=== PATIENT | female | born 1960 | race American Indian/Alaskan Native ===

== ENCOUNTER 2017-01-24 12:06 | Emergency (ER) | payer MEDICAID ==
[2017-01-24 12:29] VITALS: BP 105/69
[2017-01-24] MEDS ORDERED: NORCO 5/325 PO ONE (15:16)
--- NOTE | 2017-01-24 15:33 | Emergency Department Report ---
ED General Adult HPI - General Chief complaint: Skin Rash Stated complaint: OPEN SORES ON HEAD/BACK/UNABLE TO HEAL Time Seen by Provider: 01/24/17 15:05 Source: patient Mode of arrival: Ambulatory Limitations: No Limitations - History of Present Illness Initial comments: PT c/o skin rash x 3-4 weeks. PT states the rash started on her scalp after she used a perm. PT states she thought she was allergic to the perm. PT states the first spot has healed but now she feels a bump coming back. PT states that she now has a rash on the back of her head that is tender, throbs and has foul smelling drainage. PT staets that yesterday she noticed bumps to her back. PT states she has had rash under L breast x 1-2 weeks. PT states she has tried topical antibiotic ointment and hydrogen peroxide but no improvement. PT also states she has painful bumps in her nose. MD Complaint: rash Onset/Timin -: Gradual, week(s) Location: head, face, chest, back, right, lower extremity Quality: other (throbbing headache with post scalp touched ) Consistency: intermittent Worsens with: other (palpation of scalp. laying down) Associated Symptoms: headaches (if scalp touched ). denies: chest pain, fever/ chills, loss of appetite, nausea/vomiting, shortness of breath Treatments Prior to Arrival: none - Related Data Previous Rx's Medication Instructions Recorded Last Taken Type ALPRAZolam [Xanax] 0.25 mg PO BID PRN #14 tab 06/11/13 Unknown Rx Azithromycin [Zithromax Z-TRAY] 250 mg PO DAILY #6 tab 06/11/13 Unknown Rx Dextromethorphan Polistirex 30 mg PO BID PRN #70 ml 06/11/13 Unknown Rx [Delsym] Acetaminophen/Codeine [Tylenol #3] 1 tab PO Q6H PRN #12 tab 01/24/17 Unknown Rx Cephalexin [Keflex] 500 mg PO Q6HR #40 capsule 01/24/17 Unknown Rx Mupirocin [Bactroban 2%] 1 applic TP TID 5 Days 01/24/17 Unknown Rx Nystatin [Nystop Powder] 1 applicatio TP TID 7 Days 01/24/17 Unknown Rx Sulfamethoxazole/Trimethoprim 1 each PO BID #20 tablet 01/24/17 Unknown Rx [Bactrim DS TAB] hydrOXYzine PAMOATE [Vistaril] 25 mg PO Q6HR PRN #12 capsule 01/24/17 Unknown Rx Allergies Allergy/AdvReac Type Severity Reaction Status Date / Time No Known Allergies Allergy Unverified 06/11/13 15:20 ED Review of Systems ROS: Stated complaint: OPEN SORES ON HEAD/BACK/UNABLE TO HEAL Other details as noted in HPI Comment: All other systems reviewed and negative Constitutional: denies: chills, fever ENT: epistaxis (if she rubs nose or blows hard, bumps in nose will bleed ) Respiratory: denies: shortness of breath Gastrointestinal: denies: nausea, vomiting Musculoskeletal: back pain (rash is painful ) Skin: rash ED Past Medical Hx - Past Medical History Previous Medical History?: No Additional medical history: Hepatitis C - Surgical History Past Surgical History?: Yes Hx Coronary Stent: No Additional Surgical History: Oral surgery - Social History Smoking Status: Former Smoker Substance Use Type: Prescribed - Medications Home Medications: Home Medications Medication Instructions Recorded Confirmed Last Taken Type ALPRAZolam [Xanax] 0.25 mg PO BID PRN #14 tab 06/11/13 Unknown Rx Azithromycin [Zithromax Z-TRAY] 250 mg PO DAILY #6 tab 06/11/13 Unknown Rx Dextromethorphan Polistirex 30 mg PO BID PRN #70 ml 06/11/13 Unknown Rx [Delsym] Acetaminophen/Codeine [Tylenol #3] 1 tab PO Q6H PRN #12 tab 01/24/17 Unknown Rx Cephalexin [Keflex] 500 mg PO Q6HR #40 capsule 01/24/17 Unknown Rx Mupirocin [Bactroban 2%] 1 applic TP TID 5 Days 01/24/17 Unknown Rx Nystatin [Nystop Powder] 1 applicatio TP TID 7 Days 01/24/17 Unknown Rx Sulfamethoxazole/Trimethoprim 1 each PO BID #20 tablet 01/24/17 Unknown Rx [Bactrim DS TAB] hydrOXYzine PAMOATE [Vistaril] 25 mg PO Q6HR PRN #12 capsule 01/24/17 Unknown Rx ED Physical Exam - General Limitations: No Limitations General appearance: alert, in no apparent distress - Head Head exam: Present: atraumatic, normocephalic, normal inspection - Eye Eye exam: Present: normal appearance, PERRL, EOMI. Absent: conjunctival injection - ENT ENT exam: Present: mucous membranes moist, normal external ear exam, other ( pustule to R nare, dried blood to L nare ) - Neck Neck exam: Present: normal inspection, full ROM. Absent: tenderness, lymphadenopathy - Respiratory Respiratory exam: Present: normal lung sounds bilaterally. Absent: respiratory distress, chest wall tenderness - Cardiovascular Cardiovascular Exam: Present: regular rate, normal rhythm - GI/Abdominal GI/Abdominal exam: Present: soft. Absent: tenderness - Extremities Exam Extremities exam: Present: normal inspection, full ROM. Absent: tenderness, pedal edema - Back Exam Back exam: Present: full ROM, tenderness (pustules on back ttp ), rash noted. Absent: CVA tenderness (R), CVA tenderness (L), muscle spasm, paraspinal tenderness, vertebral tenderness - Neurological Exam Neurological exam: Present: alert, oriented X3, normal gait - Psychiatric Psychiatric exam: Present: normal affect, normal mood - Skin Skin exam: Present: warm, dry, rash - Expanded Skin Exam Expanded Type of lesion: Present: rash. Absent: abscess Distribution of rash: head (scalp), chest, back Description of rash: Present: tenderness, erythematous, crusting, discharge 1 - post scalp with 3cm area of erythema, edema, and foul smelling drainage. 2 - scattered pustules 3 - scar 4 - erythematous wet rash under L breast 5 - skin is dry and scaly ED Course Vital Signs 01/24/17 12:25 Temperature 98 F Pulse Rate 65 Respiratory 18 Rate Blood Pressure 105/69 O2 Sat by Pulse 100 Oximetry - Reevaluation(s) Reevaluation #1: 01/24/17 15:43 PT aware of dx and plan of care - Pulse Oximetry Interpretation Digit-Finger Initial Pulse Oximetry Readin Actions Taken: none ED Medical Decision Making - Differential Diagnosis allergic reaction, tinea, cellulitis, abscess Critical Care Time: No Critical care attestation.: If time is entered above; I have spent that time in minutes in the direct care of this critically ill patient, excluding procedure time. ED Disposition Clinical Impression: Infection of scalp, Pustule of nostril, Skin pustule, Adriana infection Disposition: TO HOME OR SELFCARE Is pt being admited?: No Does the pt Need Aspirin: No Condition: Stable Instructions: Diaper Rash (ED), Cellulitis (ED), Acute Rash (ED), Folliculitis (ED) Additional Instructions: No driving or alcohol after taking Vistaril or Tylenol #3 Finish all antibiotics Apply the ointment to your nostrils use the powder under your left breast make sure your skin is completely dry after bathing good hand hygiene. Follow up with PCP / dermatology in the next 3-5 days The skin on your scalp appears infected today. You will need to be re- evaluated to ensure that there is not an underlying fungal infection If you have worsening or concerns, return to the ED Prescriptions: Acetaminophen/Codeine [Tylenol #3] 1 tab PO Q6H PRN #12 tab PRN Reason: Pain , Severe (7-10) Cephalexin [Keflex] 500 mg PO Q6HR #40 capsule hydrOXYzine PAMOATE [Vistaril] 25 mg PO Q6HR PRN #12 capsule PRN Reason: Itching Mupirocin [Bactroban 2%] 1 applic TP TID 5 Days Nystatin [Nystop Powder] 1 applicatio TP TID 7 Days Sulfamethoxazole/Trimethoprim [Bactrim DS TAB] 1 each PO BID #20 tablet Referrals: PRIMARY MD LEE [Primary Care Provider] - 3-5 Days TORI WHALEY MD [Staff Physician] - 3-5 Days [facility] [Outside] - 3-5 Days Forms: Work/School Release Form(ED) Time of Disposition: 15:48
== END 2017-01-24 16:09 | disposition home or self-care (01) ==
LOC: ED 12:06
DX: B37.2 Candidiasis of skin and nail (principal); Z87.891 Personal history of nicotine dependence
CPT/HCPCS: 99282

== ENCOUNTER 2020-08-27 10:24 | Outpatient (CLI) | payer BC ==
--- NOTE | 2020-08-27 11:37 | XRay Report ---
CHEST 2 VIEWS INDICATION: TOBACCO ABUSE. COMPARISON: None FINDINGS: Support devices: None. Heart: Within normal limits. Lungs/pleura: No acute air space or interstitial disease. No pneumothorax. Additional findings: Mild to moderate thoracolumbar scoliosis is noted. IMPRESSION: No acute findings. Unremarkable chest films. Signer Name: Ceasar Bradley Jr, MD Signed: 08/27/2020 11:32 AM Workstation Name: [id number]
--- NOTE | 2020-08-27 11:53 | Mammography Report ---
BILATERAL DIGITAL SCREENING MAMMOGRAM WITH CAD HISTORY: Screening mammogram. TECHNIQUE: Routine digital mammographic imaging performed. This examination was interpreted with damian giles benefit of Computer-aided Detection analysis. COMPARISON: None available, this is a baseline exam. FINDINGS: Breast Density: predominantly fatty breast parenchymal pattern. Digital CC and MLO views demonstrate no mammographic evidence of malignancy. IMPRESSION: No mammographic evidence of malignancy. If the clinical examination remains stable, recommend bilate ral mammogram in approximately one year. BIRADS 1: Negative. FURTHER INFORMATION: According to the [employer], yearly mammograms are recommend ed starting at age 40 and continuing as long as a woman is in good health. Clinical Breast Exams shou ld be part of a periodic health exam-about every 3 years for women in their 20s and 30s and every yea r for women 40 and over. Breast self exam is an option for women starting in their 20s. Any breast ch jacky noted on a breast self exam should be reported promptly to the patient's healthcare provider. Br east MRI is recommended for women with an approximately 20-25% or greater lifetime risk of breast can cer, including women with a strong family history of breast or ovarian cancer and women who have been treated for Hodgkin's disease. A negative Mammography report should not discourage follow up or biopsy of a clinically significant f inding and/or abnormality. Dense breast tissue may obscure small neoplasms. The patient will be entered into a reminder system with a target due date for the next screening mamm ogram. In Signer Name: Chinmay Childress MD Signed: 08/27/2020 11:49 AM Workstation Name: [id number]
== END 2020-08-27 10:25 | disposition home or self-care (01) ==
LOC: MAMMO 10:24
PROVIDERS: ATTEND Internal Medicine
DX: Z12.31 Encounter for screening mammogram for malignant neoplasm of breast (principal)
CPT/HCPCS: 71046; 77067

== ENCOUNTER 2020-12-10 16:45 | Inpatient (IN) | payer BC ==
--- NOTE | 2020-12-10 18:17 | XRay Report ---
CHEST 1 VIEW INDICATION / CLINICAL INFORMATION: sob. COMPARISON: 08/27/2020 FINDINGS: SUPPORT DEVICES: None. HEART / MEDIASTINUM: No significant abnormality. LUNGS / PLEURA: Mild interstitial prominence No pneumothorax. ADDITIONAL FINDINGS: No significant additional findings. IMPRESSION: Mild interstitial prominence is present compared to prior examination dated 08/27/2020 and this could r epresent mild pulmonary vascular congestion. Signer Name: Shawn Johnson MD FACR Signed: 12/10/2020 6:13 PM Workstation Name: [id number]
[2020-12-10 18:42] LABS: Basophils % (Auto) 0.8 % (0.0-1.8); Eosinophils # (Auto) 0.1 K/mm3 (0.0-0.4); Eosinophils % (Auto) 0.9 % (0.0-4.3); Hematocrit 38.9 % (30.3-42.9); Hemoglobin 13.4 gm/dl (10.1-14.3); Lymphocytes # (Auto) 1.6 K/mm3 (1.2-5.4); Lymphocytes % (Auto) 25.9 % (13.4-35.0); Mean Corpuscular HGB Conc 34 % (30-34); Mean Corpuscular Volume 85 fl (79-97); Monocytes # (Auto) 0.4 K/mm3 (0.0-0.8); Monocytes % (Auto) 5.8 % (0.0-7.3); Platelet Count 237 K/mm3 (140-440); Red Blood Count 4.57 M/mm3 (3.65-5.03); Red Cell Distribution Width 14.4 % (13.2-15.2)
[2020-12-10 18:52] LABS: INR 1.02 (0.87-1.13)
[2020-12-10 18:58] LABS: C-Reactive Protein 16.8 mg/dL (0.00-1.30)
[2020-12-10 21:49] LABS: Alanine Aminotransferase 19 units/L (7-56); Albumin 3.8 g/dL (3.9-5); Blood Urea Nitrogen 11 mg/dL (7-17); Calcium 9.3 mg/dL (8.4-10.2); Hemolysis Index 3
[2020-12-10 21:51] LABS: BUN/Creatinine Ratio 16
--- NOTE | 2020-12-10 22:44 | Cat Scan Report ---
CTA CHEST WITH IV CONTRAST INDICATION: Shortness of breath, hypoxia. TECHNIQUE: Axial CT images were obtained through the chest after injection of 100 cc Omnipaque 350 IV contrast. 3 plane MIP reconstructions were produced. All CT scans at this location are performed using CT dose reduction for ALARA by means of automated exposure control. COMPARISON: One view of the chest from earlier today. FINDINGS: PULMONARY ARTERIES: No pulmonary emboli. AORTA AND ARTERIES: There is mild aortic atherosclerosis without other significant abnormalities. HEART: No significant abnormality. MEDIASTINUM: Shotty mediastinal nodes are seen without a dominant mass. No significant abnormality of the airways. LUNGS: There are mostly peripheral generalized bilateral groundglass opacities with more dense airspa ce opacities noted along the lung bases. No suspicious nodule or mass. No pneumothorax or pleural eff usion. ADDITIONAL FINDINGS: None. UPPER ABDOMEN: No acute findings. BONES: No significant osseous abnormality. IMPRESSION: 1. No CT evidence for pulmonary embolism. 2. Suspected bilateral pneumonia. An atypical viral etiology is a consideration. Signer Name: Dinesh Gonsalez MD Signed: 12/10/2020 10:39 PM Workstation Name: [id number]
[2020-12-10] MEDS ORDERED: AZITHROMYCIN/NS 500 MG/250 ML 500 MG/250 ML BAG IV ONE (22:49)
[2020-12-10] MEDS ORDERED: cefTRIAXone/NS 1 GM/50 ML 1 GM/50 ML BAG IV ONE (22:50)
--- NOTE | 2020-12-10 22:57 | Emergency Department Report ---
ED General Adult HPI - General Chief complaint: Dyspnea/Respdistress Stated complaint: SOB Time Seen by Provider: 12/10/20 17:37 Source: patient, EMS Mode of arrival: Stretcher Limitations: No Limitations - History of Present Illness Initial comments: The patient presents to the emergency department via EMS from her doctor's office for shortness of breath. Patient states that she has had a dry cough and shortness of breath for the last couple of days and went to see her physician who is Dr. Manjit Quigley this afternoon. Upon arriving to his office and having vitals obtained it was noticed that her O2 sats were 87% on room air. Patient was sent to emergency department via EMS. Patient denies any uday chest pain but does endorse shortness of breath. -: Gradual Severity scale (0 -10): 0 Consistency: constant Improves with: none Worsens with: none Associated Symptoms: denies other symptoms Treatments Prior to Arrival: none - Related Data Previous Rx's Medication Instructions Recorded Last Taken Type ALPRAZolam [Xanax] 0.25 mg PO BID PRN #14 tab 06/11/13 Unknown Rx Azithromycin [Zithromax Z-TRAY] 250 mg PO DAILY #6 tab 06/11/13 Unknown Rx Dextromethorphan Polistirex 30 mg PO BID PRN #70 ml 06/11/13 Unknown Rx [Delsym] Acetaminophen/Codeine [Tylenol #3] 1 tab PO Q6H PRN #12 tab 01/24/17 Unknown Rx Mupirocin [Bactroban 2%] 1 applic TP TID 5 Days tube 01/24/17 Unknown Rx Nystatin [Nystop Powder] 1 applicatio TP TID 7 Days bottle 01/24/17 Unknown Rx Sulfamethoxazole/Trimethoprim 1 each PO BID #20 tablet 01/24/17 Unknown Rx [Bactrim DS TAB] cephALEXin [Keflex] 500 mg PO Q6HR #40 capsule 01/24/17 Unknown Rx hydrOXYzine PAMOATE [Vistaril] 25 mg PO Q6HR PRN #12 capsule 01/24/17 Unknown Rx Allergies Allergy/AdvReac Type Severity Reaction Status Date / Time No Known Allergies Allergy Unverified 06/11/13 15:20 ED Review of Systems ROS: Stated complaint: SOB Other details as noted in HPI Constitutional: denies: chills, fever Eyes: denies: eye pain, eye discharge, vision change ENT: denies: ear pain, throat pain Respiratory: shortness of breath. denies: cough, wheezing Cardiovascular: chest pain. denies: palpitations Endocrine: no symptoms reported Gastrointestinal: denies: abdominal pain, nausea, diarrhea Genitourinary: denies: urgency, dysuria, discharge Musculoskeletal: denies: back pain, joint swelling, arthralgia Skin: denies: rash, lesions Neurological: denies: headache, weakness, paresthesias Psychiatric: denies: anxiety, depression Hematological/Lymphatic: denies: easy bleeding, easy bruising ED Past Medical Hx - Past Medical History Previous Medical History?: Yes Hx Hypertension: Yes Hx Headaches / Migraines: Yes Hx COPD: Yes Additional medical history: Hepatitis C - Surgical History Hx Coronary Stent: No Additional Surgical History: Oral surgery, surgery for collapsed lung - Social History Smoking Status: Former Smoker Substance Use Type: None - Medications Home Medications: Home Medications Medication Instructions Recorded Confirmed Last Taken Type ALPRAZolam [Xanax] 0.25 mg PO BID PRN #14 tab 06/11/13 Unknown Rx Azithromycin [Zithromax Z-TRAY] 250 mg PO DAILY #6 tab 06/11/13 Unknown Rx Dextromethorphan Polistirex 30 mg PO BID PRN #70 ml 06/11/13 Unknown Rx [Delsym] Acetaminophen/Codeine [Tylenol #3] 1 tab PO Q6H PRN #12 tab 01/24/17 Unknown Rx Mupirocin [Bactroban 2%] 1 applic TP TID 5 Days tube 01/24/17 Unknown Rx Nystatin [Nystop Powder] 1 applicatio TP TID 7 Days bottle 01/24/17 Unknown Rx Sulfamethoxazole/Trimethoprim 1 each PO BID #20 tablet 01/24/17 Unknown Rx [Bactrim DS TAB] cephALEXin [Keflex] 500 mg PO Q6HR #40 capsule 01/24/17 Unknown Rx hydrOXYzine PAMOATE [Vistaril] 25 mg PO Q6HR PRN #12 capsule 01/24/17 Unknown Rx ED Physical Exam - General Limitations: No Limitations General appearance: alert, in no apparent distress - Head Head exam: Present: atraumatic, normocephalic - Eye Eye exam: Present: normal appearance - ENT ENT exam: Present: mucous membranes moist - Neck Neck exam: Present: normal inspection - Respiratory Respiratory exam: Present: normal lung sounds bilaterally, respiratory distress, decreased breath sounds - Cardiovascular Cardiovascular Exam: Present: regular rate, normal rhythm. Absent: systolic murmur, diastolic murmur, rubs, gallop - GI/Abdominal GI/Abdominal exam: Present: soft, normal bowel sounds. Absent: distended, tenderness - Extremities Exam Extremities exam: Present: normal inspection - Back Exam Back exam: Present: normal inspection - Neurological Exam Neurological exam: Present: alert, oriented X3, CN II-XII intact. Absent: motor sensory deficit - Psychiatric Psychiatric exam: Present: normal affect, normal mood - Skin Skin exam: Present: warm, dry, intact, normal color. Absent: rash ED Course Vital Signs 12/10/20 12/10/20 12/10/20 18:04 18:12 18:21 Temperature 98.6 F Pulse Rate 105 H Respiratory 25 H 25 H Rate Blood Pressure 113/77 Blood Pressure 113/77 [Left] O2 Sat by Pulse 96 95 95 Oximetry 12/10/20 12/10/20 12/10/20 18:31 19:01 19:31 Temperature Pulse Rate 105 H 107 H Respiratory 30 H 19 23 Rate Blood Pressure 118/85 118/85 118/85 Blood Pressure [Left] O2 Sat by Pulse 93 94 93 Oximetry 12/10/20 12/10/20 20:01 22:35 Temperature Pulse Rate Respiratory 19 20 Rate Blood Pressure Blood Pressure [Left] O2 Sat by Pulse 93 94 Oximetry ED Medical Decision Making - Lab Data Result diagrams: 12/10/20 18:21 12/10/20 18:31 Lab Results 12/10/20 12/10/20 12/10/20 Range/Units 18:21 18:21 18:21 WBC (4.5-11.0) K/mm3 RBC (3.65-5.03) M/mm3 Hgb (10.1-14.3) gm/dl Hct (30.3-42.9) % MCV (79-97) fl MCH (28-32) pg MCHC (30-34) % RDW (13.2-15.2) % Plt Count (140-440) K/mm3 Lymph % (Auto) (13.4-35.0) % [place] % (Auto) (0.0-7.3) % Eos % (Auto) (0.0-4.3) % Baso % (Auto) (0.0-1.8) % Lymph # (Auto) (1.2-5.4) K/mm3 [place] # (Auto) (0.0-0.8) K/mm3 Eos # (Auto) (0.0-0.4) K/mm3 Baso # (Auto) (0.0-0.1) K/mm3 Seg Neutrophils % (40.0-70.0) % Seg Neutrophils # (1.8-7.7) K/mm3 PT 13.3 (12.2-14.9) Sec. INR 1.02 (0.87-1.13) APTT 35.0 (24.2-36.6) Sec. D-Dimer 355.26 H (0-234) ng/mlDDU ABG pH (7.320-7.450) POC ABG pCO2 (32.0-48.0) mmHg POC ABG pO2 (83-108) mmHg POC ABG HCO3 ABG O2 Saturation (0-100) POC ABG Base Excess ABG Hemoglobin (12.0-17.5) ABG Oxyhemoglobin (94-98) ABG Methemoglobin (0.0-1.5) ABG Sodium (136.0-145.0) mmol/L ABG Potassium (3.40-4.50) mmol/L ABG Chloride (98-107) mmol/L ABG Glucose (65-95) mg/dL Carboxyhemoglobin (0.5-1.5) FiO2 % Sodium (137-145) mmol/L Potassium (3.6-5.0) mmol/L Chloride (98-107) mmol/L Carbon Dioxide (22-30) mmol/L Anion Gap mmol/L BUN (7-17) mg/dL Creatinine (0.6-1.2) mg/dL Estimated GFR ml/min BUN/Creatinine Ratio % Glucose 94 (65-100) mg/dL Lactic Acid (0.7-2.0) mmol/L Calcium (8.4-10.2) mg/dL Ferritin 594.5 H (10.0-200.0) ng/mL Total Bilirubin (0.1-1.2) mg/dL AST (5-40) units/L ALT (7-56) units/L Alkaline Phosphatase (35-129) units/L Lactate Dehydrogenase 345 H (91-180) units/L C-Reactive Protein 16.80 H (0.00-1.30) mg/dL Total Protein (6.3-8.2) g/dL Albumin (3.9-5) g/dL Albumin/Globulin Ratio % Arterial Blood Glucose (65-95) mg/dL Arterial Blood Ionized Calcium (4.6-5.3) mg/dL 12/10/20 12/10/20 12/10/20 Range/Units 18:21 18:21 18:31 WBC 6.3 (4.5-11.0) K/mm3 RBC 4.57 (3.65-5.03) M/mm3 Hgb 13.4 (10.1-14.3) gm/dl Hct 38.9 (30.3-42.9) % MCV 85 (79-97) fl MCH 29 (28-32) pg MCHC 34 (30-34) % RDW 14.4 (13.2-15.2) % Plt Count 237 (140-440) K/mm3 Lymph % (Auto) 25.9 (13.4-35.0) % [place] % (Auto) 5.8 (0.0-7.3) % Eos % (Auto) 0.9 (0.0-4.3) % Baso % (Auto) 0.8 (0.0-1.8) % Lymph # (Auto) 1.6 (1.2-5.4) K/mm3 [place] # (Auto) 0.4 (0.0-0.8) K/mm3 Eos # (Auto) 0.1 (0.0-0.4) K/mm3 Baso # (Auto) 0.0 (0.0-0.1) K/mm3 Seg Neutrophils % 66.6 (40.0-70.0) % Seg Neutrophils # 4.2 (1.8-7.7) K/mm3 PT (12.2-14.9) Sec. INR (0.87-1.13) APTT (24.2-36.6) Sec. D-Dimer (0-234) ng/mlDDU ABG pH (7.320-7.450) POC ABG pCO2 (32.0-48.0) mmHg POC ABG pO2 (83-108) mmHg POC ABG HCO3 ABG O2 Saturation (0-100) POC ABG Base Excess ABG Hemoglobin (12.0-17.5) ABG Oxyhemoglobin (94-98) ABG Methemoglobin (0.0-1.5) ABG Sodium (136.0-145.0) mmol/L ABG Potassium (3.40-4.50) mmol/L ABG Chloride (98-107) mmol/L ABG Glucose (65-95) mg/dL Carboxyhemoglobin (0.5-1.5) FiO2 % Sodium 134 L (137-145) mmol/L Potassium 3.0 L (3.6-5.0) mmol/L Chloride 91.6 L (98-107) mmol/L Carbon Dioxide 27 (22-30) mmol/L Anion Gap 18 mmol/L BUN 11 (7-17) mg/dL Creatinine 0.7 (0.6-1.2) mg/dL Estimated GFR > 60 ml/min BUN/Creatinine Ratio 16 % Glucose 91 (65-100) mg/dL Lactic Acid 1.40 (0.7-2.0) mmol/L Calcium 9.3 (8.4-10.2) mg/dL Ferritin (10.0-200.0) ng/mL Total Bilirubin 0.50 (0.1-1.2) mg/dL AST 39 (5-40) units/L ALT 19 (7-56) units/L Alkaline Phosphatase 93 (35-129) units/L Lactate Dehydrogenase (91-180) units/L C-Reactive Protein (0.00-1.30) mg/dL Total Protein 7.7 (6.3-8.2) g/dL Albumin 3.8 L (3.9-5) g/dL Albumin/Globulin Ratio 1.0 % Arterial Blood Glucose (65-95) mg/dL Arterial Blood Ionized Calcium (4.6-5.3) mg/dL 12/10/20 Range/Units 22:01 WBC (4.5-11.0) K/mm3 RBC (3.65-5.03) M/mm3 Hgb (10.1-14.3) gm/dl Hct (30.3-42.9) % MCV (79-97) fl MCH (28-32) pg MCHC (30-34) % RDW (13.2-15.2) % Plt Count (140-440) K/mm3 Lymph % (Auto) (13.4-35.0) % [place] % (Auto) (0.0-7.3) % Eos % (Auto) (0.0-4.3) % Baso % (Auto) (0.0-1.8) % Lymph # (Auto) (1.2-5.4) K/mm3 [place] # (Auto) (0.0-0.8) K/mm3 Eos # (Auto) (0.0-0.4) K/mm3 Baso # (Auto) (0.0-0.1) K/mm3 Seg Neutrophils % (40.0-70.0) % Seg Neutrophils # (1.8-7.7) K/mm3 PT (12.2-14.9) Sec. INR (0.87-1.13) APTT (24.2-36.6) Sec. D-Dimer (0-234) ng/mlDDU ABG pH 7.481 H (7.320-7.450) POC ABG pCO2 38.4 (32.0-48.0) mmHg POC ABG pO2 50.7 L (83-108) mmHg POC ABG HCO3 28.0 ABG O2 Saturation 86.3 (0-100) POC ABG Base Excess 4.4 ABG Hemoglobin 14.3 (12.0-17.5) ABG Oxyhemoglobin 85.3 L (94-98) ABG Methemoglobin 0.3 (0.0-1.5) ABG Sodium 137.3 (136.0-145.0) mmol/L ABG Potassium 2.9 L (3.40-4.50) mmol/L ABG Chloride 96.0 L (98-107) mmol/L ABG Glucose 84 (65-95) mg/dL Carboxyhemoglobin 0.9 (0.5-1.5) FiO2 % 21.0 Sodium (137-145) mmol/L Potassium (3.6-5.0) mmol/L Chloride (98-107) mmol/L Carbon Dioxide (22-30) mmol/L Anion Gap mmol/L BUN (7-17) mg/dL Creatinine (0.6-1.2) mg/dL Estimated GFR ml/min BUN/Creatinine Ratio % Glucose (65-100) mg/dL Lactic Acid (0.7-2.0) mmol/L Calcium (8.4-10.2) mg/dL Ferritin (10.0-200.0) ng/mL Total Bilirubin (0.1-1.2) mg/dL AST (5-40) units/L ALT (7-56) units/L Alkaline Phosphatase (35-129) units/L Lactate Dehydrogenase (91-180) units/L C-Reactive Protein (0.00-1.30) mg/dL Total Protein (6.3-8.2) g/dL Albumin (3.9-5) g/dL Albumin/Globulin Ratio % Arterial Blood Glucose 84 (65-95) mg/dL Arterial Blood Ionized Calcium 4.3 L (4.6-5.3) mg/dL - Radiology Data Radiology results: report reviewed - Medical Decision Making Patient's O2 sats are 95% on 2 L nasal cannula IV antibiotics initiated Results discussed with patient Critical Care Time: Yes Critical care time in (mins) excluding proc time.: 35 Critical care attestation.: If time is entered above; I have spent that time in minutes in the direct care of this critically ill patient, excluding procedure time. ED Disposition Clinical Impression: Bilateral pneumonia, Hypoxia Disposition: OP ADMIT IP TO THIS HOSP Is pt being admited?: Yes Does the pt Need Aspirin: No Condition: Fair Instructions: Bacterial Pneumonia (ED) Referrals: PRIMARY CARE, [Primary Care Provider] - 3-5 Days
[2020-12-10] MEDS ORDERED: dexAMETHasone 4 MG/ML VIAL IV ONE (23:22)
[2020-12-10] MEDS ORDERED: ALBUTEROL 2.5 MG/3 ML NEBU IH PRN (23:30)
[2020-12-10] MEDS ORDERED: hydrALAZINE 20 MG/1 ML INJ IV PRN (23:30)
[2020-12-10] MEDS ORDERED: ONDANSETRON 4 MG/2 ML INJ IV PRN (23:30)
[2020-12-10] MEDS ORDERED: DEXTROMETHORPHAN POLISTIREX 30 MG/5 ML PO PRN (23:31)
--- NOTE | 2020-12-10 23:39 | History and Physical Report ---
History of Present Illness Date of examination: 12/10/20 Date of admission: 12/10/20 Chief complaint: Shortness of breath History of present illness: 60 years old female with history of COPD former smoker hypertension was brought to the ER from her doctor's office for shortness of breath. Patient states that she has had a dry cough and shortness of breath for the last couple of days and went to see her physician who is Dr. Manjit Quigley this afternoon. Upon ar riving to his office and having vitals obtained it was noticed that her O2 sats were 87% on room air. Patient was sent to emergency department via EMS. Patient denies any uday chest pain but does endorse shortness of breath. In the emergency room patient O2 sat was 86.3. Patient CT scan of the chest showed groundglass opacity compatible with Covid pneumonia as per the ER physician Past History Past Medical History: COPD, hypertension, other (Former smoker migraine) Medications and Allergies Allergies Allergy/AdvReac Type Severity Reaction Status Date / Time No Known Allergies Allergy Unverified 06/11/13 15:20 Home Medications Medication Instructions Recorded Confirmed Last Taken Type ALPRAZolam [Xanax] 0.25 mg PO BID PRN #14 tab 06/11/13 Unknown Rx Azithromycin [Zithromax Z-TRAY] 250 mg PO DAILY #6 tab 06/11/13 Unknown Rx Dextromethorphan Polistirex 30 mg PO BID PRN #70 ml 06/11/13 Unknown Rx [Delsym] Acetaminophen/Codeine [Tylenol #3] 1 tab PO Q6H PRN #12 tab 01/24/17 Unknown Rx Mupirocin [Bactroban 2%] 1 applic TP TID 5 Days tube 01/24/17 Unknown Rx Nystatin [Nystop Powder] 1 applicatio TP TID 7 Days bottle 01/24/17 Unknown Rx Sulfamethoxazole/Trimethoprim 1 each PO BID #20 tablet 01/24/17 Unknown Rx [Bactrim DS TAB] cephALEXin [Keflex] 500 mg PO Q6HR #40 capsule 01/24/17 Unknown Rx hydrOXYzine PAMOATE [Vistaril] 25 mg PO Q6HR PRN #12 capsule 01/24/17 Unknown Rx Active Meds: Active Medications Azithromycin (Zithromax/Ns) 500 mg in 250 mls @ 250 mls/hr IV ONCE ONE; Protoco l Stop: 12/10/20 23:48 Ceftriaxone Sodium (Rocephin/Ns 2 Gm/100 Ml) 2 gm in 100 mls @ 200 mls/hr IV Q24H MARTHA; Protocol Azithromycin (Zithromax/Ns) 500 mg in 250 mls @ 250 mls/hr IV Q24H MARTHA; Protoc ol Review of Systems Cardiovascular: shortness of breath Respiratory: cough, cough with sputum, shortness of breath Exam - Constitutional Vitals: Temp Pulse Resp BP Pulse Ox 98.6 F 107 H 20 118/85 94 12/10/20 18:12 12/10/20 19:01 12/10/20 22:35 12/10/20 19:31 12/10/20 22:35 General appearance: Present: no acute distress, well-nourished - EENT Eyes: Present: PERRL ENT: hearing intact, clear oral mucosa - Neck Neck: Present: supple, normal ROM - Respiratory Respiratory effort: normal Respiratory: bilateral: diminished - Cardiovascular Heart Sounds: Present: S1 & S2. Absent: rub, click - Extremities Extremities: pulses symmetrical, No edema Peripheral Pulses: within normal limits - Abdominal General gastrointestinal: Present: soft, non-tender, non-distended, normal bowel sounds Female genitourinary: Present: normal - Integumentary Integumentary: Present: clear, warm, dry - Musculoskeletal Musculoskeletal: gait normal, strength equal bilaterally - Psychiatric Psychiatric: appropriate mood/affect, intact judgment & insight - Neurologic Neurologic: CNII-XII intact, moves all extremities Results - Labs CBC & Chem 7: 12/10/20 18:21 12/10/20 18:31 Labs: Laboratory Last Values WBC 6.3 K/mm3 (4.5-11.0) 12/10/20 18: RBC 4.57 M/mm3 (3.65-5.03) 12/10/20 18:21 Hgb 13.4 gm/dl (10.1-14.3) 12/10/20 18:21 Hct 38.9 % (30.3-42.9) 12/10/20 18:21 MCV 85 fl (79-97) 12/10/20 18:21 MCH 29 pg (28-32) 12/10/20 18:21 MCHC 34 % (30-34) 12/10/20 18:21 RDW 14.4 % (13.2-15.2) 12/10/20 18:21 Plt Count 237 K/mm3 (140-440) 12/10/20 18:21 Lymph % (Auto) 25.9 % (13.4-35.0) 12/10/20 18:21 [place] % (Auto) 5.8 % (0.0-7.3) 12/10/20 18:21 Eos % (Auto) 0.9 % (0.0-4.3) 12/10/20 18:21 Baso % (Auto) 0.8 % (0.0-1.8) 12/10/20 18:21 Lymph # (Auto) 1.6 K/mm3 (1.2-5.4) 12/10/20 18:21 [place] # (Auto) 0.4 K/mm3 (0.0-0.8) 12/10/20 18:21 Eos # (Auto) 0.1 K/mm3 (0.0-0.4) 12/10/20 18: Baso # (Auto) 0.0 K/mm3 (0.0-0.1) 12/10/20 18: Seg Neutrophils % 66.6 % (40.0-70.0) 12/10/20 18: Seg Neutrophils # 4.2 K/mm3 (1.8-7.7) 12/10/20 18:21 PT 13.3 Sec. (12.2-14.9) 12/10/20 18: INR 1.02 (0.87-1.13) 12/10/20 18: APTT 35.0 Sec. (24.2-36.6) 12/10/20 18:21 D-Dimer 355.26 ng/mlDDU (0-234) H 12/10/20 18:21 ABG pH 7.481 (7.320-7.450) H 12/10/20 22:01 POC ABG pCO2 38.4 mmHg (32.0-48.0) 12/10/20 22:01 POC ABG pO2 50.7 mmHg (83-108) L 12/10/20 22:01 POC ABG HCO3 28.0 12/10/20 22:01 ABG O2 Saturation 86.3 (0-100) 12/10/20 22:01 POC ABG Base Excess 4.4 12/10/20 22:01 ABG Hemoglobin 14.3 (12.0-17.5) 12/10/20 22:01 ABG Oxyhemoglobin 85.3 (94-98) L 12/10/20 22:01 ABG Methemoglobin 0.3 (0.0-1.5) 12/10/20 22:01 ABG Sodium 137.3 mmol/L (136.0-145.0) 12/10/20 22:01 ABG Potassium 2.9 mmol/L (3.40-4.50) L 12/10/20 22:01 ABG Chloride 96.0 mmol/L (98-107) L 12/10/20 22:01 ABG Glucose 84 mg/dL (65-95) 12/10/20 22:01 Carboxyhemoglobin 0.9 (0.5-1.5) 12/10/20 22:01 FiO2 % 21.0 12/10/20 22:01 Sodium 134 mmol/L (137-145) L 12/10/20 18:31 Potassium 3.0 mmol/L (3.6-5.0) L 12/10/20 18:31 Chloride 91.6 mmol/L (98-107) L 12/10/20 18:31 Carbon Dioxide 27 mmol/L (22-30) 12/10/20 18:31 Anion Gap 18 mmol/L 12/10/20 18:31 BUN 11 mg/dL (7-17) 12/10/20 18:31 Creatinine 0.7 mg/dL (0.6-1.2) 12/10/20 18:31 Estimated GFR > 60 ml/min 12/10/20 18:31 BUN/Creatinine Ratio 16 % 12/10/20 18:31 Glucose 91 mg/dL (65-100) 12/10/20 18:31 Lactic Acid 1.40 mmol/L (0.7-2.0) 12/10/20 18:21 Calcium 9.3 mg/dL (8.4-10.2) 12/10/20 18:31 Ferritin 594.5 ng/mL (10.0-200.0) H 12/10/20 18:21 Total Bilirubin 0.50 mg/dL (0.1-1.2) 12/10/20 18:31 AST 39 units/L (5-40) 12/10/20 18:31 ALT 19 units/L (7-56) 12/10/20 18:31 Alkaline Phosphatase 93 units/L (35-129) 12/10/20 18:31 Lactate Dehydrogenase 345 units/L (91-180) H 12/10/20 18:21 C-Reactive Protein 16.80 mg/dL (0.00-1.30) H 12/10/20 18:21 Total Protein 7.7 g/dL (6.3-8.2) 12/10/20 18:31 Albumin 3.8 g/dL (3.9-5) L 12/10/20 18:31 Albumin/Globulin Ratio 1.0 % 12/10/20 18:31 Arterial Blood Glucose 84 mg/dL (65-95) 12/10/20 22:01 Arterial Blood Ionized Calcium 4.3 mg/dL (4.6-5.3) L 12/10/20 22:01 Microbiology: Microbiology 12/10/20 18:21 Peripheral/Venous Blood Culture - Preliminary Culture in Progress 12/10/20 18:21 Peripheral/Venous Blood Culture - Preliminary Culture in Progress - Imaging and Cardiology CT scan - chest: report reviewed Assessment and Plan VTE prophylaxis?: Chemical Plan of care discussed with patient/family: Yes - Patient Problems (1) Pneumonia due to COVID-19 virus Current Visit: Yes Status: Acute Plan to address problem: Admit the patient to the medical floor. Put the patient on pneumonia pathway. Oxygen by nasal cannula 3 L/min. DuoNeb by nebulizer every 4 hours as needed. Rocephin 2 g IV daily and Zithromax 500 mg IV daily. Dexamethasone 6 mg IV daily. We do the blood cultures sputum culture. We will consult infectious disease for further evaluation. Follow the markers of COVID-19 (2) COPD (chronic obstructive pulmonary disease) Current Visit: Yes Status: Acute Plan to address problem: Oxygen per nasal cannula 3 L/min. DuoNeb by nebulizer every 4 hours as needed. Dexamethasone 6 mg IV daily (3) Hypoxia Current Visit: Yes Status: Acute Plan to address problem: Oxygen per nasal cannula 3 L/min. DuoNeb by nebulizer every 4 hours as needed. Dexamethasone 6 mg IV daily. If needed will consult pulmonary (4) Hypertension Current Visit: Yes Status: Acute Plan to address problem: Hydralazine 10 mg IV every 6 hours as needed. We monitor the blood pressure closely (5) Migraine Current Visit: Yes Status: Acute Plan to address problem: Stable we will continue the home medication (6) DVT prophylaxis Current Visit: Yes Status: Acute Plan to address problem: Heparin 5000 units subcu every 8 hours for DVT prophylaxis. Pepcid 20 mg p.o. twice daily for GI prophylaxis. Patient is a full code
[2020-12-11] MEDS: guaiFENesin 100 MG/5 ML ORAL LIQD PO PRN (01:01)
[2020-12-11] MEDS: IPRATROPIUM/ALBUTEROL SULFATE 3 ML AMPUL.NEB IH SCH ×4 (01:26→20:44)
[2020-12-11] MEDS: HEPARIN 5,000 UNIT/1 ML VIAL SUB-Q SCH ×3 (05:13→21:42)
[2020-12-11 07:37] LABS: Basophils % (Auto) 0.2 % (0.0-1.8); Eosinophils % (Auto) 0.1 % (0.0-4.3); Hematocrit 37.5 % (30.3-42.9); Hemoglobin 12.9 gm/dl (10.1-14.3); Lymphocytes # (Auto) 1.1 K/mm3 (1.2-5.4); Lymphocytes % (Auto) 22.8 % (13.4-35.0); Mean Corpuscular HGB Conc 34 % (30-34); Mean Corpuscular Volume 85 fl (79-97); Monocytes # (Auto) 0.3 K/mm3 (0.0-0.8); Monocytes % (Auto) 6.2 % (0.0-7.3); Red Blood Count 4.39 M/mm3 (3.65-5.03); Red Cell Distribution Width 14.1 % (13.2-15.2)
[2020-12-11 07:52] LABS: Blood Urea Nitrogen 14 mg/dL (7-17); Calcium 8.8 mg/dL (8.4-10.2); Hemolysis Index 0
[2020-12-11 07:56] LABS: Platelet Count 252 K/mm3 (140-440)
[2020-12-11 07:57] LABS: BUN/Creatinine Ratio 23
[2020-12-11] MEDS ORDERED: POTASSIUM CHLORIDE ER 20 MEQ TAB PO NR (09:07)
[2020-12-11] MEDS: dexAMETHasone 4 MG/ML VIAL IV SCH (09:30)
[2020-12-11] MEDS: FAMOTIDINE 20 MG TAB PO SCH ×2 (09:30→21:42)
[2020-12-11] MEDS: MUPIROCIN 2% OINT 22 GM TP SCH ×3 (09:32→21:44)
[2020-12-11] MEDS: NYSTATIN POWDER 15 GM TP SCH ×3 (09:44→21:44)
[2020-12-11] MEDS ORDERED: cefTRIAXone/NS 2 GM/100 ML 2 GM/100 ML BAG IV SCH (10:00)
[2020-12-11] MEDS ORDERED: AZITHROMYCIN/NS 500 MG/250 ML 500 MG/250 ML BAG IV SCH (10:00)
--- NOTE | 2020-12-11 11:36 | Progress Note ---
Assessment and Plan -- Pneumonia due to COVID-19 virus -Patient tested positive for COVID-19 virus -CXR/CTA shows patchy parenchymal disease with a groundglass opacity -S/p dexamethasone, azithromycin and ceftriaxone in the ED -Placed on dexamethasone for total 10 days and will start remdesivir total 5 days -No need for antibiotic as procalcitonin level is normal -Infectious disease consulted, appreciate recommendations -Droplet/contact isolation -Continue SPO2 monitoring -Supplemental oxygen as needed -Pulmonary hygiene -Prone to sleep -Vitamin C, vitamin D, zinc -Anticoagulation per protocol -Lasix IV as needed to prevent pulmonary edema -- COPD (chronic obstructive pulmonary disease) with exacerbation Oxygen per nasal cannula 3 L/min. DuoNeb by nebulizer every 4 hours as needed. Dexamethasone 6 mg IV daily --Acute hypoxic respiratory failure, POA Due to COVID-19 pneumonia Oxygen per nasal cannula 3 L/min. DuoNeb by nebulizer every 4 hours as needed. Dexamethasone 6 mg IV daily. If needed will consult pulmonary -- Hypertension Hydralazine 10 mg IV every 6 hours as needed. We monitor the blood pressure closely -- Migraine Stable we will continue the home medication --Obesity, diet and exercise recommendation when clinically more stable as outpatient -- DVT prophylaxis Heparin 5000 units subcu every 8 hours for DVT prophylaxis. Pepcid 20 mg p.o. twice daily for GI prophylaxis. --Patient is a full code Brief history: 60-year-old female past medical history COPD, hypertension, obesity who did not receive COVID-19 vaccine yet sent to the hospital from her PCP due to shortness of breath and found to be saturating 87% on room air. Chest CTA in the ER showed bilateral groundglass opacities. Admitted for possible COVID-19 pneumonia and acute respiratory failure. Daily clinical course: 12/10/20; Covid PCR positive. Normal procalcitonin. Normal renal function. Stop ceftriaxone and azithromycin as procalcitonin level is normal. ID consultED. Continue dexamethasone 6 mg daily for 10 days . Will start on remdesivir as patient is hypoxic and requiring 2-3 L nasal cannula O2. Blood cultures pending. Continue to follow COVID-19 protocol and monitor inflammatory markers. Subjective Date of service: 12/11/20 Interval history: Patient seen and examined. Medical records and medication list reviewed. No acute event overnight noted by the RN. Patient complains of difficulty breathing on minimal exertion and dry cough. Patient is tolerating diet. Positive for COVID-19 Discussed plan of care at bedside with patient. Objective - Exam Narrative Exam: Limited physical exam due to COVID-19 pandemic to minimize transmission of the disease and to preserve PPE. Vital reviewed and stable. GENERAL: well-developed obese elderly -[place] female lying on bed appeared to be in no discomfort. HEENT: Normocephalic. Atraumatic. NECK: Supple. CHEST/LUNGS: breathing nonlabored. HEART/CARDIOVASCULAR: Heart rate stable on telemetry ABDOMEN: Visibly not distended SKIN: There is no rash NEURO: No focal motor deficit. Follows command. MUSCULOSKELETAL: No joint effusion EXTRIMITY: No swelling, no cyanosis or clubbing. PSYCH: Cooperative. - Constitutional Vitals: Vital Signs - 12hr 12/10/20 12/10/20 12/11/20 23:41 23:51 00:01 Temperature Pulse Rate Pulse Rate [ Bilateral Throughout] Respiratory 27 H 24 32 H Rate Respiratory Rate [Bilateral Throughout] Blood Pressure 115/73 115/73 112/73 Blood Pressure [Left] O2 Sat by Pulse 95 96 95 Oximetry 12/11/20 12/11/20 12/11/20 00:26 00:30 02:30 Temperature 98.5 F 98.7 F Pulse Rate 105 H 110 H Pulse Rate [ Bilateral Throughout] Respiratory 18 16 Rate Respiratory Rate [Bilateral Throughout] Blood Pressure 108/78 Blood Pressure 97/64 [Left] O2 Sat by Pulse 90 94 95 Oximetry 12/11/20 12/11/20 12/11/20 05:02 05:45 05:51 Temperature 98.7 F Pulse Rate 88 Pulse Rate [ Bilateral Throughout] Respiratory 18 Rate Respiratory Rate [Bilateral Throughout] Blood Pressure 126/61 112/73 112/73 Blood Pressure [Left] O2 Sat by Pulse 91 94 100 Oximetry 12/11/20 12/11/20 07:31 08:59 Temperature Pulse Rate Pulse Rate [ 90 Bilateral Throughout] Respiratory Rate Respiratory 17 Rate [Bilateral Throughout] Blood Pressure Blood Pressure [Left] O2 Sat by Pulse 92 Oximetry - Labs CBC & Chem 7: 12/11/20 06:25 12/11/20 06:25 Labs: Abnormal lab results 12/10/20 12/10/20 12/10/20 Range/Units 18:21 18:21 18:21 Lymph # (Auto) (1.2-5.4) K/mm3 Seg Neutrophils % (40.0-70.0) % D-Dimer 355.26 H (0-234) ng/mlDDU ABG pH (7.320-7.450) POC ABG pO2 (83-108) mmHg ABG Oxyhemoglobin (94-98) ABG Potassium (3.40-4.50) mmol/L ABG Chloride (98-107) mmol/L Sodium (137-145) mmol/L Potassium (3.6-5.0) mmol/L Chloride (98-107) mmol/L Glucose (65-100) mg/dL Ferritin 594.5 H (10.0-200.0) ng/mL Lactate Dehydrogenase 345 H (91-180) units/L C-Reactive Protein 16.80 H (0.00-1.30) mg/dL Albumin (3.9-5) g/dL Arterial Blood Ionized Calcium (4.6-5.3) mg/dL 12/10/20 12/10/20 12/11/20 Range/Units 18:31 22:01 06:25 Lymph # (Auto) 1.1 L (1.2-5.4) K/mm3 Seg Neutrophils % 70.7 H (40.0-70.0) % D-Dimer (0-234) ng/mlDDU ABG pH 7.481 H (7.320-7.450) POC ABG pO2 50.7 L (83-108) mmHg ABG Oxyhemoglobin 85.3 L (94-98) ABG Potassium 2.9 L (3.40-4.50) mmol/L ABG Chloride 96.0 L (98-107) mmol/L Sodium 134 L (137-145) mmol/L Potassium 3.0 L (3.6-5.0) mmol/L Chloride 91.6 L (98-107) mmol/L Glucose (65-100) mg/dL Ferritin (10.0-200.0) ng/mL Lactate Dehydrogenase (91-180) units/L C-Reactive Protein (0.00-1.30) mg/dL Albumin 3.8 L (3.9-5) g/dL Arterial Blood Ionized Calcium 4.3 L (4.6-5.3) mg/dL 12/11/20 Range/Units 06:25 Lymph # (Auto) (1.2-5.4) K/mm3 Seg Neutrophils % (40.0-70.0) % D-Dimer (0-234) ng/mlDDU ABG pH (7.320-7.450) POC ABG pO2 (83-108) mmHg ABG Oxyhemoglobin (94-98) ABG Potassium (3.40-4.50) mmol/L ABG Chloride (98-107) mmol/L Sodium (137-145) mmol/L Potassium 3.1 L (3.6-5.0) mmol/L Chloride 93.4 L (98-107) mmol/L Glucose 104 H (65-100) mg/dL Ferritin (10.0-200.0) ng/mL Lactate Dehydrogenase (91-180) units/L C-Reactive Protein (0.00-1.30) mg/dL Albumin (3.9-5) g/dL Arterial Blood Ionized Calcium (4.6-5.3) mg/dL
--- NOTE | 2020-12-11 14:32 | Consultation ---
History of Present Illness - Reason for Consult Consult date: 12/11/20 - History of Present Illness 60-year-old female past medical history COPD, hypertension, obesity sent to the hospital from her PCP due to shortness of breath. She complains of associated dry cough which is been present for the past couple days. At her PCP office she is found to be saturating 87% on room air and was sent to the emergency room. She is found to have bilateral groundglass opacities. Afebrile since admission with a white count of 4.9. Covid PCR pending. Normal procalcitonin. Normal renal function. Currently receiving ceftriaxone and azithromycin. Blood cultures pending. Currently on 2 L nasal cannula. Imaging personally reviewed: Chest CTA: No evidence of pulmonary embolism, bilateral groundglass opacities Review of systems: Deferred to reduce to the risk of transmission of COVID-19 Past History Past Medical History: COPD, hypertension, other (Former smoker migraine) Medications and Allergies Allergies Allergy/AdvReac Type Severity Reaction Status Date / Time No Known Allergies Allergy Unverified 06/11/13 15:20 Home Medications Medication Instructions Recorded Confirmed Last Taken Type ALPRAZolam [Xanax] 0.25 mg PO BID PRN #14 tab 06/11/13 12/11/20 Unknown Rx Azithromycin [Zithromax Z-TRAY] 250 mg PO DAILY #6 tab 06/11/13 12/11/20 Unknown Rx Dextromethorphan Polistirex 30 mg PO BID PRN #70 ml 06/11/13 12/11/20 Unknown Rx [Delsym] Acetaminophen/Codeine [Tylenol #3] 1 tab PO Q6H PRN #12 tab 01/24/17 12/11/20 Unknown Rx Mupirocin [Bactroban 2%] 1 applic TP TID 5 Days tube 01/24/17 12/11/20 Unknown Rx Nystatin [Nystop Powder] 1 applicatio TP TID 7 Days bottle 01/24/17 12/11/20 Unknown Rx Sulfamethoxazole/Trimethoprim 1 each PO BID #20 tablet 01/24/17 12/11/20 Unknown Rx [Bactrim DS TAB] cephALEXin [Keflex] 500 mg PO Q6HR #40 capsule 01/24/17 12/11/20 Unknown Rx hydrOXYzine PAMOATE [Vistaril] 25 mg PO Q6HR PRN #12 capsule 01/24/17 12/11/20 Unknown Rx Active Meds: Active Medications Acetaminophen (Acetaminophen 325 Mg Tab) 650 mg PO Q4H PRN PRN Reason: Pain MILD(1-3)/Fever >100.5/[place] Albuterol (Albuterol 2.5 Mg/3 Ml Nebu) 2.5 mg IH Q4HRT PRN PRN Reason: Shortness Of Breath Albuterol/Ipratropium (Ipratropium/Albuterol Sulfate 3 Ml Ampul.Neb) 1 ampul IH Q6HRT [facility] Last Admin: 12/11/20 13:54 Dose: 1 ampul Documented by: Alprazolam (Alprazolam 0.25 Mg Tab) 0.25 mg PO BID PRN PRN Reason: Anxiety Dexamethasone (Dexamethasone 4 Mg/Ml Vial) 6 mg IV DAILY [facility] Stop: 12/19/20 10:01 Last Admin: 12/11/20 09:30 Dose: 6 mg Documented by: Famotidine (Famotidine 20 Mg Tab) 20 mg PO BID [facility] Last Admin: 12/11/20 09:30 Dose: 20 mg Documented by: Guaifenesin (Guaifenesin 100 Mg/5 Ml Oral Liqd) 200 mg PO Q4H PRN PRN Reason: Cough Last Admin: 12/11/20 01:01 Dose: 200 mg Documented by: Heparin Sodium (Porcine) (Heparin 5,000 Unit/1 Ml Vial) 5,000 unit SUB-Q Q8HR [facility] Last Admin: 12/11/20 05:13 Dose: 5,000 unit Documented by: Hydralazine HCl (Hydralazine 20 Mg/1 Ml Inj) 10 mg IV Q6H PRN PRN Reason: htn Ceftriaxone Sodium (Rocephin/Ns 2 Gm/100 Ml) 2 gm in 100 mls @ 200 mls/hr IV Q24HR [facility]; Protocol Last Admin: 12/11/20 09:31 Dose: 200 mls/hr Documented by: Azithromycin (Zithromax/Ns) 500 mg in 250 mls @ 250 mls/hr IV Q24HR [facility]; Protocol Last Admin: 12/11/20 10:32 Dose: 250 mls/hr Documented by: Mupirocin (Mupirocin 2% Oint 22 Gm) 1 applic TP TID [facility] Last Admin: 12/11/20 09:32 Dose: Not Given Documented by: Nystatin (Nystatin Powder 15 Gm) 1 applic TP TID [facility] Last Admin: 12/11/20 09:44 Dose: Not Given Documented by: Ondansetron HCl (Ondansetron 4 Mg/2 Ml Inj) 4 mg IV Q8H PRN PRN Reason: Nausea And Vomiting Sodium Chloride (Sodium Chloride 0.9% 10 Ml Flush Syringe) 10 ml IV BID [facility] Last Admin: 12/11/20 09:33 Dose: 10 ml Documented by: Sodium Chloride (Sodium Chloride 0.9% 10 Ml Flush Syringe) 10 ml IV PRN PRN PRN Reason: LINE FLUSH Physical Examination - Physical Exam Narrative exam: Physical exam deferred to reduce risk of transmission of COVID-19. Please refer to primary team's note. - Constitutional Vitals: Vital Signs Temp Pulse Resp BP Pulse Ox 98.7 F 85 17 112/73 92 12/11/20 05:02 12/11/20 13:31 12/11/20 13:31 12/11/20 05:51 12/11/20 08:59 Temperature -Last 24 Hours Temperature 98.7 F Temperature 98.7 F Temperature 98.5 F Temperature 98.6 F Temperature 98.6 F Results - Labs CBC & Chem 7: 12/11/20 06:25 12/11/20 06:25 Labs: Abnormal lab results 12/10/20 12/10/20 12/10/20 Range/Units 18:21 18:21 18:21 Lymph # (Auto) (1.2-5.4) K/mm3 Seg Neutrophils % (40.0-70.0) % D-Dimer 355.26 H (0-234) ng/mlDDU ABG pH (7.320-7.450) POC ABG pO2 (83-108) mmHg ABG Oxyhemoglobin (94-98) ABG Potassium (3.40-4.50) mmol/L ABG Chloride (98-107) mmol/L Sodium (137-145) mmol/L Potassium (3.6-5.0) mmol/L Chloride (98-107) mmol/L Glucose (65-100) mg/dL Ferritin 594.5 H (10.0-200.0) ng/mL Lactate Dehydrogenase 345 H (91-180) units/L C-Reactive Protein 16.80 H (0.00-1.30) mg/dL Albumin (3.9-5) g/dL Arterial Blood Ionized Calcium (4.6-5.3) mg/dL 12/10/20 12/10/20 12/11/20 Range/Units 18:31 22:01 06:25 Lymph # (Auto) 1.1 L (1.2-5.4) K/mm3 Seg Neutrophils % 70.7 H (40.0-70.0) % D-Dimer (0-234) ng/mlDDU ABG pH 7.481 H (7.320-7.450) POC ABG pO2 50.7 L (83-108) mmHg ABG Oxyhemoglobin 85.3 L (94-98) ABG Potassium 2.9 L (3.40-4.50) mmol/L ABG Chloride 96.0 L (98-107) mmol/L Sodium 134 L (137-145) mmol/L Potassium 3.0 L (3.6-5.0) mmol/L Chloride 91.6 L (98-107) mmol/L Glucose (65-100) mg/dL Ferritin (10.0-200.0) ng/mL Lactate Dehydrogenase (91-180) units/L C-Reactive Protein (0.00-1.30) mg/dL Albumin 3.8 L (3.9-5) g/dL Arterial Blood Ionized Calcium 4.3 L (4.6-5.3) mg/dL 12/11/20 Range/Units 06:25 Lymph # (Auto) (1.2-5.4) K/mm3 Seg Neutrophils % (40.0-70.0) % D-Dimer (0-234) ng/mlDDU ABG pH (7.320-7.450) POC ABG pO2 (83-108) mmHg ABG Oxyhemoglobin (94-98) ABG Potassium (3.40-4.50) mmol/L ABG Chloride (98-107) mmol/L Sodium (137-145) mmol/L Potassium 3.1 L (3.6-5.0) mmol/L Chloride 93.4 L (98-107) mmol/L Glucose 104 H (65-100) mg/dL Ferritin (10.0-200.0) ng/mL Lactate Dehydrogenase (91-180) units/L C-Reactive Protein (0.00-1.30) mg/dL Albumin (3.9-5) g/dL Arterial Blood Ionized Calcium (4.6-5.3) mg/dL Assessment and Plan Cultures: Blood culture pending COVID-19 PCR: Pending A/P: 60-year-old female past medical history COPD, hypertension admitted as Covid PUI #Covid PUI: With bilateral groundglass opacities and pneumonia. Procalcitonin normal, no evidence of pulmonary embolism. Saturating 87% on room air at PCP office. #Obesity #COPD Recs: -Continue 6 mg dexamethasone every 24 hours to complete 10 days. -Follow-up Covid PCR -If PCR is positive and requiring supplemental oxygen would start remdesivir -Stop antibiotics due to normal procalcitonin -Anticoagulation per hospital protocol Thank you for the consult, we will continue to follow. MD Tanya Richards [facility] O: [phone] F: [phone]
[2020-12-11] MEDS ORDERED: POTASSIUM CHLORIDE ER 20 MEQ TAB PO ONE (21:29)
[2020-12-11] MEDS ORDERED: REMDESIVIR 100 MG VIAL IV ONE (21:30)
[2020-12-11] MEDS ORDERED: REMDESIVIR 200 MG in SODIUM CHLORIDE 0.9% 250ML 250 ML IV ONE (21:31)
[2020-12-11] MEDS: SODIUM CHLORIDE 0.9% 50 ML IVPB IV SCH (21:43)
[2020-12-11] MEDS: ALPRAZolam 0.25 MG TAB PO PRN (21:50)
[2020-12-12] MEDS: IPRATROPIUM/ALBUTEROL SULFATE 3 ML AMPUL.NEB IH SCH ×4 (02:11→21:10)
[2020-12-12] MEDS: guaiFENesin 100 MG/5 ML ORAL LIQD PO PRN ×2 (02:46→21:22)
[2020-12-12] MEDS: HEPARIN 5,000 UNIT/1 ML VIAL SUB-Q SCH (05:43)
[2020-12-12] MEDS ORDERED: POTASSIUM CHLORIDE ER 20 MEQ TAB PO NR (07:21)
[2020-12-12] MEDS: NYSTATIN POWDER 15 GM TP SCH ×3 (08:54→20:54)
[2020-12-12] MEDS: MUPIROCIN 2% OINT 22 GM TP SCH ×3 (08:54→20:54)
[2020-12-12] MEDS: dexAMETHasone 4 MG/ML VIAL IV SCH (09:00)
[2020-12-12] MEDS: FAMOTIDINE 20 MG TAB PO SCH ×2 (09:00→21:22)
[2020-12-12 09:11] LABS: Alanine Aminotransferase 23 units/L (7-56); Albumin 3.6 g/dL (3.9-5); Blood Urea Nitrogen 12 mg/dL (7-17); Calcium 8.7 mg/dL (8.4-10.2); Hemolysis Index 1
[2020-12-12 09:51] LABS: BUN/Creatinine Ratio 20
--- NOTE | 2020-12-12 11:36 | Progress Note ---
Subjective Date of service: 12/12/20 Interval history: --COVID-19 pneumonia -CXR/CTA shows patchy parenchymal disease with a groundglass opacity -Continue dexamethasone for total 10 days -Started on remdesivir yesterday -Antibiotics discontinued as procalcitonin is normal -Infectious disease consulted, appreciate recommendations -Droplet/contact isolation -Continue SPO2 monitoring -Supplemental oxygen as needed -Pulmonary hygiene -Prone to sleep -Vitamin C, vitamin D, zinc -Anticoagulation per protocol -Lasix IV as needed to prevent pulmonary edema -- COPD (chronic obstructive pulmonary disease) with exacerbation Oxygen per nasal cannula 3 L/min. DuoNeb by nebulizer every 4 hours as needed. Dexamethasone 6 mg IV daily --Acute hypoxic respiratory failure, POA -ABG from 12/10 reviewed Due to COVID-19 pneumonia Oxygen per nasal cannula 3 L/min. Dexamethasone 6 mg Patient's oxygen saturation on room air is around 93 to 95% If needed will consult pulmonary -- Hypertension -normotensive off medication Hydralazine 10 mg IV every 6 hours as needed. Hypokalemia Potassium supplements ordered Monitor electrolytes -- Migraine Stable --Obesity, class I diet and exercise recommendation when clinically more stable as outpatient -- DVT prophylaxis We will start the patient on Lovenox SQ twice daily and discontinue heparin secondary to Covid pneumonia --Patient is a full code Brief history: 60-year-old female past medical history COPD, hypertension, obesity who did not receive COVID-19 vaccine yet sent to the hospital from her PCP due to shortness of breath and found to be saturating 87% on room air. Chest CTA in the ER showed bilateral groundglass opacities. Admitted for possible COVID-19 pneumonia and acute respiratory failure. Daily clinical course: 12/10/20; Covid PCR positive. Normal procalcitonin. Normal renal function. Stop ceftriaxone and azithromycin as procalcitonin level is normal. ID consultED. Continue dexamethasone 6 mg daily for 10 days . Will start on remdesivir as patient is hypoxic and requiring 2-3 L nasal cannula O2. Blood cultures pending. Continue to follow COVID-19 protocol and monitor inflammatory markers. 12/12 patient is awake and alert and offers no specific complaints except dry co ugh, she denies any fever or chills and states that her shortness of breath is improving. However still feels short of breath with exertion. Overall feeling better. Lab results reviewed. ID note reviewed Objective - Constitutional Vitals: Vital Signs - 12hr 12/12/20 12/12/20 02:00 05:14 Temperature 98.1 F Pulse Rate 83 Pulse Rate [ 84 Bilateral Throughout] Respiratory 22 Rate Respiratory 17 Rate [Bilateral Throughout] Blood Pressure 98/66 O2 Sat by Pulse 93 Oximetry General appearance: Present: no acute distress, well-nourished - EENT Eyes: PERRL, EOM intact ENT: hearing intact - Neck Neck: supple, normal ROM, no masses or JVD - Respiratory Respiratory effort: normal Respiratory: bilateral: CTA, diminished - Cardiovascular Rhythm: regular Heart Sounds: Present: S1 & S2 Extremities: No edema - Gastrointestinal General gastrointestinal: Present: soft, non-tender Rectal Exam: deferred - Genitourinary Female genitourinary: deferred - Musculoskeletal Musculoskeletal: strength equal bilaterally - Neurologic Neurologic: no focal deficits, moves all extremities - Psychiatric Psychiatric: appropriate mood/affect - Labs CBC & Chem 7: 12/11/20 06:25 12/12/20 07:44 Labs: Abnormal lab results 12/10/20 12/12/20 Range/Units Unknown 07:44 Potassium 3.2 L (3.6-5.0) mmol/L Albumin 3.6 L (3.9-5) g/dL Coronavirus (PCR) Positive A (Negative)
--- NOTE | 2020-12-12 11:55 | Progress Note ---
Assessment and Plan Cultures: Blood culture pending COVID-19 PCR: Positive A/P: 60-year-old female past medical history COPD, hypertension admitted as Covid PUI #Covid-19: With bilateral groundglass opacities and pneumonia. Procalcitonin normal, no evidence of pulmonary embolism. Saturating 87% on room air at PCP office. #Acute hypoxic respiratory failure: on 3L NC #Obesity #COPD Recs: -Continue 6 mg dexamethasone every 24 hours to complete 10 days. -Continue remdesivir to complete 5 days -Anticoagulation per hospital protocol Thank you for the consult, we will continue to follow. Shirley Vazquez MD [facility] ([facility]) O: [phone] F: [phone] Subjective Date of service: 12/12/20 Interval history: Afebrile, normal white count. On 3L NC. COVID PCR positive. Objective - Exam Narrative Exam: Physical exam deferred to reduce risk of transmission of COVID-19. Please refer to primary team's note. - Constitutional Vitals: Vital Signs Temp Pulse Resp BP Pulse Ox 98.1 F 83 22 98/66 93 12/12/20 05:14 12/12/20 05:14 12/12/20 05:14 12/12/20 05:14 12/12/20 05:14 Temperature -Last 24 Hours Temperature 98.1 F Temperature 97.8 F Temperature 97.2 F - Labs CBC & Chem 7: 12/11/20 06:25 12/12/20 07:44 Labs: Abnormal lab results 12/10/20 12/12/20 Range/Units Unknown 07:44 Potassium 3.2 L (3.6-5.0) mmol/L Albumin 3.6 L (3.9-5) g/dL Coronavirus (PCR) Positive A (Negative)
[2020-12-12] MEDS: ACETAMINOPHEN 325 MG TAB PO PRN (19:35)
[2020-12-12] MEDS: ENOXAPARIN 40 MG/0.4 ML INJ SUB-Q SCH (21:21)
[2020-12-12] MEDS: ALPRAZolam 0.25 MG TAB PO PRN (21:22)
[2020-12-12] MEDS: REMDESIVIR 100 MG in SODIUM CHLORIDE 0.9% 250ML 250 ML IV SCH (21:58)
[2020-12-12] MEDS: SODIUM CHLORIDE 0.9% 50 ML IVPB IV SCH (23:00)
[2020-12-13] MEDS: IPRATROPIUM/ALBUTEROL SULFATE 3 ML AMPUL.NEB IH SCH ×2 (03:28→11:20)
[2020-12-13 08:05] LABS: Alanine Aminotransferase 21 units/L (7-56); Albumin 3.3 g/dL (3.9-5); Blood Urea Nitrogen 9 mg/dL (7-17); Calcium 8.7 mg/dL (8.4-10.2); Hemolysis Index 1
[2020-12-13 08:12] LABS: BUN/Creatinine Ratio 15
[2020-12-13] MEDS: NYSTATIN POWDER 15 GM TP SCH ×3 (08:35→21:34)
[2020-12-13] MEDS: MUPIROCIN 2% OINT 22 GM TP SCH ×3 (08:35→21:34)
--- NOTE | 2020-12-13 10:38 | Progress Note ---
Subjective Date of service: 12/13/20 Interval history: --COVID-19 pneumonia -CXR/CTA shows patchy parenchymal disease with a groundglass opacity -Continue dexamethasone day 3 -Started on remdesivir day 3 -Antibiotics discontinued as procalcitonin is normal -Infectious disease consulted, appreciate recommendations -Droplet/contact isolation -Continue SPO2 monitoring -Supplemental oxygen as needed -Pulmonary hygiene -Prone to sleep -Vitamin C, vitamin D, zinc -Anticoagulation per protocol -Lasix IV as needed to prevent pulmonary edema -- COPD (chronic obstructive pulmonary disease) not in exacerbation Oxygen per nasal cannula 3 L/min. Dexamethasone 6 mg IV daily --Acute hypoxic respiratory failure, POA -ABG from 12/10 reviewed Due to COVID-19 pneumonia Oxygen per nasal cannula 3 L/min. Dexamethasone 6 mg Patient is noncompliant with oxygen and states that she uses it off and on Her O2 saturation is 91 to 94% most likely that he is on room air I have instructed the patient to keep the oxygen on all the time -- Hypertension -normotensive off medication Hydralazine 10 mg IV every 6 hours as needed. Hypokalemia Serum potassium 3.1 Potassium supplements ordered Monitor electrolytes -- Migraine Stable --Obesity, class I diet and exercise recommendation when clinically more stable as outpatient -- DVT prophylaxis Continue Lovenox SQ twice daily --Patient is a full code Brief history: 60-year-old female past medical history COPD, hypertension, obesity who did not receive COVID-19 vaccine yet sent to the hospital from her PCP due to shortness of breath and found to be saturating 87% on room air. Chest CTA in the ER showed bilateral groundglass opacities. Admitted for possible COVID-19 pneumonia and acute respiratory failure. Daily clinical course: 12/10/20; Covid PCR positive. Normal procalcitonin. Normal renal function. Stop ceftriaxone and azithromycin as procalcitonin level is normal. ID consultED. Continue dexamethasone 6 mg daily for 10 days . Will start on remdesivir as patient is hypoxic and requiring 2-3 L nasal cannula O2. Blood cultures pending. Continue to follow COVID-19 protocol and monitor inflammatory markers. 12/12 patient is awake and alert and offers no specific complaints except dry cough, she denies any fever or chills and states that her shortness of breath is improving. However still feels short of breath with exertion. Overall feeling better. Lab results reviewed. ID note reviewed 12/13 patient is resting in the bed and she is not on oxygen. She offers no specific complaints and states that she feels better and shortness of breath is better. I have advised patient to keep the oxygen all the time for now. Lab results reviewed. ID note reviewed Objective - Constitutional Vitals: Vital Signs - 12hr 12/13/20 12/13/20 00:25 05:22 Temperature 97.7 F 98.9 F Pulse Rate 83 67 Respiratory 16 18 Rate Blood Pressure 115/72 130/64 O2 Sat by Pulse 94 91 Oximetry General appearance: Present: no acute distress - EENT Eyes: PERRL, EOM intact ENT: hearing intact, clear oral mucosa - Neck Neck: supple, normal ROM - Respiratory Respiratory effort: normal Respiratory: bilateral: CTA, diminished - Cardiovascular Rhythm: regular Heart Sounds: Present: S1 & S2 Extremities: No edema - Gastrointestinal General gastrointestinal: Present: soft, non-tender - Genitourinary Female genitourinary: deferred - Integumentary Integumentary: clear - Musculoskeletal Musculoskeletal: strength equal bilaterally - Neurologic Neurologic: no focal deficits, moves all extremities - Psychiatric Psychiatric: appropriate mood/affect - Labs CBC & Chem 7: 12/11/20 06:25 12/13/20 06:29 Labs: Abnormal lab results 12/13/20 Range/Units 06:29 Potassium 3.1 L (3.6-5.0) mmol/L Albumin 3.3 L (3.9-5) g/dL
[2020-12-13] MEDS: dexAMETHasone 4 MG/ML VIAL IV SCH (10:40)
[2020-12-13] MEDS: ENOXAPARIN 40 MG/0.4 ML INJ SUB-Q SCH ×2 (10:40→21:55)
[2020-12-13] MEDS: FAMOTIDINE 20 MG TAB PO SCH ×2 (10:40→21:54)
[2020-12-13] MEDS: POTASSIUM CHLORIDE ER 20 MEQ TAB PO SCH ×2 (10:42→17:23)
[2020-12-13] MEDS: guaiFENesin 100 MG/5 ML ORAL LIQD PO PRN ×2 (11:07→21:56)
[2020-12-13] MEDS: ACETAMINOPHEN 325 MG TAB PO PRN (13:15)
[2020-12-13] MEDS: REMDESIVIR 100 MG in SODIUM CHLORIDE 0.9% 250ML 250 ML IV SCH (21:40)
[2020-12-13] MEDS: ALPRAZolam 0.25 MG TAB PO PRN (21:54)
[2020-12-13] MEDS: SODIUM CHLORIDE 0.9% 50 ML IVPB IV SCH (22:45)
[2020-12-14 07:58] LABS: Alanine Aminotransferase 23 units/L (7-56); Albumin 3.3 g/dL (3.9-5); Blood Urea Nitrogen 10 mg/dL (7-17); Calcium 8.3 mg/dL (8.4-10.2); Hemolysis Index 0
[2020-12-14 08:03] LABS: BUN/Creatinine Ratio 17
--- NOTE | 2020-12-14 09:52 | Progress Note ---
Subjective Date of service: 12/14/20 Interval history: --COVID-19 pneumonia -CXR/CTA shows patchy parenchymal disease with a groundglass opacity -Continue dexamethasone day 4 -Started on remdesivir day 4 -Antibiotics discontinued as procalcitonin is normal -Infectious disease consulted, appreciate recommendations -Droplet/contact isolation -Oxygen saturation on oxygen is 98% -Prone to sleep -Anticoagulation per protocol -- COPD (chronic obstructive pulmonary disease) not in exacerbation Oxygen per nasal cannula 3 L/min. Dexamethasone 6 mg daily --Acute hypoxic respiratory failure, POA -ABG from 12/10 reviewed Due to COVID-19 pneumonia Oxygen per nasal cannula 3 L/min. Dexamethasone 6 mg Patient is noncompliant with oxygen and states that she uses it off and on Her O2 saturation 93% but with oxygen O2 saturation goes up to 98% I have instructed the patient to keep the oxygen on all the time We will do a 6-minute walk on room air tomorrow and possibly discharge patient tomorrow after remdesivir therapy -- Hypertension -normotensive off medication Hydralazine 10 mg IV every 6 hours as needed. Hypokalemia Improved with supplements -- Migraine Stable --Obesity, class I diet and exercise recommendation when clinically more stable as outpatient -- DVT prophylaxis Continue Lovenox SQ twice daily --Patient is a full code Brief history: 60-year-old female past medical history COPD, hypertension, obesity who did not receive COVID-19 vaccine yet sent to the hospital from her PCP due to shortness of breath and found to be saturating 87% on room air. C hest CTA in the ER showed bilateral groundglass opacities. Admitted for possible COVID-19 pneumonia and acute respiratory failure. Daily clinical course: 12/10/20; Covid PCR positive. Normal procalcitonin. Normal renal function. Stop ceftriaxone and azithromycin as procalcitonin level is normal. ID consultED. Continue dexamethasone 6 mg daily for 10 days . Will start on remdesivir as patient is hypoxic and requiring 2-3 L nasal cannula O2. Blood cultures pending. Continue to follow COVID-19 protocol and monitor inflammatory markers. 12/12 patient is awake and alert and offers no specific complaints except dry cough, she denies any fever or chills and states that her shortness of breath is improving. However still feels short of breath with exertion. Overall feeling better. Lab results reviewed. ID note reviewed 12/13 patient is resting in the bed and she is not on oxygen. She offers no specific complaints and states that she feels better and shortness of breath is better. I have advised patient to keep the oxygen all the time for now. Lab re sults reviewed. ID note reviewed 12/14 patient is doing well. No complaints. Ambulating in the room Lab results reviewed, possible discharge tomorrow. 6-minute walk on room air tomorrow Objective - Constitutional Vitals: Vital Signs - 12hr 12/14/20 12/14/20 04:18 09:01 Temperature 98.0 F Pulse Rate 70 Respiratory 16 Rate Blood Pressure 120/79 O2 Sat by Pulse 98 98 Oximetry General appearance: Present: no acute distress - EENT Eyes: PERRL, EOM intact ENT: hearing intact - Neck Neck: normal ROM, no masses or JVD - Respiratory Respiratory effort: normal Respiratory: bilateral: CTA, diminished - Cardiovascular Rhythm: regular Heart Sounds: Present: S1 & S2 Extremities: No edema - Gastrointestinal General gastrointestinal: Present: soft, non-tender Rectal Exam: deferred - Genitourinary Female genitourinary: deferred - Integumentary Integumentary: clear - Musculoskeletal Musculoskeletal: strength equal bilaterally - Neurologic Neurologic: no focal deficits - Psychiatric Psychiatric: appropriate mood/affect - Labs CBC & Chem 7: 12/11/20 06:25 12/14/20 06:47 Labs: Abnormal lab results 12/14/20 Range/Units 06:47 Calcium 8.3 L (8.4-10.2) mg/dL Lactate Dehydrogenase 251 H (91-180) units/L C-Reactive Protein 3.20 H (0.00-1.30) mg/dL Total Protein 6.0 L (6.3-8.2) g/dL Albumin 3.3 L (3.9-5) g/dL
[2020-12-14] MEDS: guaiFENesin 100 MG/5 ML ORAL LIQD PO PRN ×4 (10:21→22:40)
[2020-12-14] MEDS: FAMOTIDINE 20 MG TAB PO SCH ×2 (10:22→22:11)
[2020-12-14] MEDS: MUPIROCIN 2% OINT 22 GM TP SCH ×3 (10:22→22:11)
[2020-12-14] MEDS: NYSTATIN POWDER 15 GM TP SCH ×3 (10:22→22:11)
[2020-12-14] MEDS: ENOXAPARIN 40 MG/0.4 ML INJ SUB-Q SCH ×2 (10:22→22:11)
[2020-12-14] MEDS: dexAMETHasone 4 MG/ML VIAL IV SCH (10:22)
[2020-12-14] MEDS: ACETAMINOPHEN 325 MG TAB PO PRN (14:45)
--- NOTE | 2020-12-14 17:38 | Progress Note ---
Assessment and Plan Cultures: Blood culture pending COVID-19 PCR: Positive A/P: 60-year-old female past medical history COPD, hypertension admitted as Covid PUI #Covid-19: With bilateral groundglass opacities and pneumonia. Procalcitonin normal, no evidence of pulmonary embolism. Saturating 87% on room air at PCP office. #Acute hypoxic respiratory failure: on 2L NC #Obesity #COPD Recs: -Continue 6 mg dexamethasone every 24 hours to complete 10 days. -Continue remdesivir to complete 5 days -Anticoagulation per hospital protocol Thank you for the consult, we will continue to follow. Dr. Blue taking over tomorrow. Shirley Vazquez MD [facility] [place] [facility] ([facility]) O: [phone] F: [phone] Subjective Date of service: 12/14/20 Interval history: Afebrile, normal white count. Cultures remain no growth so far. Currently on 2 L nasal cannula. Objective - Exam Narrative Exam: Physical exam deferred to reduce risk of transmission of COVID-19. Please refer to primary team's note. - Constitutional Vitals: Vital Signs Temp Pulse Resp BP Pulse Ox 98.0 F 72 18 123/83 94 12/14/20 16:39 12/14/20 16:39 12/14/20 16:39 12/14/20 16:39 12/14/20 16:39 Temperature -Last 24 Hours Temperature 98.0 F Temperature 97.2 F Temperature 98.0 F Temperature 98.0 F - Labs CBC & Chem 7: 12/11/20 06:25 12/14/20 06:47 Labs: Abnormal lab results 12/14/20 Range/Units 06:47 Calcium 8.3 L (8.4-10.2) mg/dL Lactate Dehydrogenase 251 H (91-180) units/L C-Reactive Protein 3.20 H (0.00-1.30) mg/dL Total Protein 6.0 L (6.3-8.2) g/dL Albumin 3.3 L (3.9-5) g/dL
[2020-12-14] MEDS: REMDESIVIR 100 MG in SODIUM CHLORIDE 0.9% 250ML 250 ML IV SCH (22:10)
[2020-12-14] MEDS: ALPRAZolam 0.25 MG TAB PO PRN (22:41)
[2020-12-14] MEDS: SODIUM CHLORIDE 0.9% 50 ML IVPB IV SCH (23:11)
[2020-12-15 04:37] VITALS: BP 160/92
[2020-12-15] MEDS: MUPIROCIN 2% OINT 22 GM TP SCH ×2 (08:00→14:00)
[2020-12-15] MEDS: NYSTATIN POWDER 15 GM TP SCH ×2 (08:00→14:00)
[2020-12-15] MEDS ORDERED: DEXAMETHASONE 4 MG TAB PO SCH (10:00)
[2020-12-15] MEDS: ENOXAPARIN 40 MG/0.4 ML INJ SUB-Q SCH (11:10)
[2020-12-15] MEDS: FAMOTIDINE 20 MG TAB PO SCH (11:10)
[2020-12-15] MEDS: guaiFENesin 100 MG/5 ML ORAL LIQD PO PRN (11:10)
--- NOTE | 2020-12-15 12:11 | Progress Note ---
Assessment and Plan Cultures: Blood culture no growth COVID-19 PCR: Positive A/P: 60-year-old female past medical history COPD, hypertension admitted as Covid PUI #COVID-19 pneumonia: With bilateral groundglass opacities and pneumonia. Procalcitonin normal, no evidence of pulmonary embolism. #Acute hypoxic respiratory failure: improving. #Obesity #COPD Recs: Since hypoxia has resolved, remdesivir discontinued Complete total 10 days of Decadron Discharge planning Cherry Blue MD, FACP [facility] ([facility]) O: [phone] F: [phone] Subjective Date of service: 12/15/20 Interval history: Afebrile. Got ambulatory saturations tested today, remained 94% on room air upon walking. Objective - Exam Narrative Exam: Physical Exam (reviewed in chart to minimize risk of transmission) Constitutional: deferred Head, Ears, Nose: deferred Eyes: deferred Neck: deferred Oral: deferred Cardiovascular: deferred Respiratory: deferred GI: deferred Musculoskeletal: deferred Skin: deferred Hem/Lymphatic: deferred Psych: deferred Neurological: deferred - Constitutional Vitals: Vital Signs Temp Pulse Resp BP Pulse Ox 98.0 F 68 16 160/92 96 12/15/20 04:12 12/15/20 04:12 12/15/20 04:12 12/15/20 04:12 12/15/20 04:12 Temperature -Last 24 Hours Temperature 98.0 F Temperature 97.8 F Temperature 98.0 F Temperature 97.2 F - Labs CBC & Chem 7: 12/11/20 06:25 12/14/20 06:47
--- NOTE | 2020-12-15 12:30 | Discharge Summary ---
Providers - Providers Date of Admission: 12/10/20 22:57 Date of discharge: 12/15/20 Attending physician: SHERLYN KABA 12/10/20 23:28 Consult to Physician [CONS] Routine Comment: Consulting Provider: BEVERLEY PENA Physician Instructions: Reason For Exam: COVID-19 positive test (U07.1, COVID-19) with A Primary care physician: PATENT LEGAL ASSISTANT Hospitalization Condition: Fair Hospital course: --COVID-19 pneumonia -CXR/CTA shows patchy parenchymal disease with a groundglass opacity -Continue dexamethasone for 6 more days - remdesivir stop by ID after 4 days as she is not hypoxic -Antibiotics discontinued as procalcitonin is normal -Infectious disease consulted -- COPD (chronic obstructive pulmonary disease) not in exacerbation Will discharge the patient with Symbicort and albuterol inhalers Outpatient follow-up with pulmonary and PFTs --Acute hypoxic respiratory failure, POA Secondary to COVID-19 pneumonia Improved 1. Room Air Resting--- 95% 2. Room air walking-- 94% 3. 02LPM via Nasal Cannal resting--96% -- Hypertension -normotensive off medication Hypokalemia Improved with supplements -- Migraine Stable --Obesity, class I diet and exercise recommendation when clinically more stable as outpatient Brief history: 60-year-old female past medical history COPD, hypertension, obesity who did not receive COVID-19 vaccine yet sent to the hospital from her PCP due to shortness of breath and found to be saturating 87% on room air. Chest CTA in the ER showed bilateral groundglass opacities. Admitted for possible COVID-19 pneumonia and acute respiratory failure. Daily clinical course: 12/10/20; Covid PCR positive. Normal procalcitonin. Normal renal function. Stop ceftriaxone and azithromycin as procalcitonin level is normal. ID consultED. Continue dexamethasone 6 mg daily for 10 days . Will start on remdesivir as patient is hypoxic and requiring 2-3 L nasal cannula O2. Blood cultures pending. Continue to follow COVID-19 protocol and monitor inflammatory markers. 12/12 patient is awake and alert and offers no specific complaints except dry cough, she denies any fever or chills and states that her shortness of breath is improving. However still feels short of breath with exertion. Overall feeling better. Lab results reviewed. ID note reviewed 12/13 patient is resting in the bed and she is not on oxygen. She offers no specific complaints and states that she feels better and shortness of breath is better. I have advised patient to keep the oxygen all the time for now. Lab results reviewed. ID note reviewed 12/14 patient is doing well. No complaints. Ambulating in the room Lab results reviewed, possible discharge tomorrow. 6-minute walk on room air tomorrow 12/15 doing well. Alert and oriented complains of shortness of breath with exertion and also cough. 6-minute walk results reviewed. O2 saturation off oxygen and with walking was 94%. ID note reviewed. Remdesivir has been discontinued. Patient is medically stable for discharge. I suspect her shortness of breath on exertion is most likely secondary to COPD as she is a longtime smoker but just quit 1 month ago. Patient needs to follow-up with pulmonary to check PFTs Disposition: DC- TO HOME OR SELFCARE Final Discharge Diagnosis (Prints w/discharge instructions): COVID-19 pneumonia Time spent for discharge: 38 minutes Core Measure Documentation - Palliative Care Palliative Care/ Comfort Measures: Not Applicable - Core Measures Any of the following diagnoses?: none Exam - Constitutional Vitals: Temp Pulse Resp BP Pulse Ox 98.0 F 68 16 160/92 96 12/15/20 04:12 12/15/20 04:12 12/15/20 04:12 12/15/20 04:12 12/15/20 04:12 General appearance: Present: no acute distress - EENT Eyes: Present: PERRL, EOM intact ENT: hearing intact - Neck Neck: Present: supple - Respiratory Respiratory effort: normal Respiratory: bilateral: CTA, diminished - Cardiovascular Rhythm: regular Heart Sounds: Present: S1 & S2 - Extremities Extremities: No edema - Abdominal General gastrointestinal: Present: soft, non-tender - Rectal Rectal Exam: deferred - Integumentary Integumentary: Present: clear - Musculoskeletal Musculoskeletal: strength equal bilaterally - Psychiatric Psychiatric: appropriate mood/affect, intact judgment & insight - Neurologic Neurologic: no focal deficits Plan Activity: advance as tolerated Weight Bearing Status: Full Weight Bearing Diet: regular, low fat Follow up with: PRIMARY CAREMD [Primary Care Provider] - 3-5 Days AURELIO REESE MD [Staff Physician] - 7 Days Prescriptions: dexAMETHasone [Decadron] 6 mg PO DAILY #7 tablet Famotidine [Pepcid] 20 mg PO BID #60 tablet Albuterol Mdi (or & Nicu Only) [ProAir HFA Inhaler] 2 puff IH QID PRN #8.5 gram PRN Reason: Shortness Of Breath guaiFENesin [Robitussin] 200 mg PO Q6HR PRN #280 oral.liqd PRN Reason: Cough Budesonide/Formoterol Fumarate [Symbicort 160-4.5 Mcg Inhaler] 10.2 gm IH BID #1 [id number].[email or web address]
== END 2020-12-15 14:30 | disposition home health service (06) | DRG 177 ==
LOC: ED 16:45 → 3A 22:57
PROVIDERS: ADMIT Hospitalist; ATTEND Internal Medicine
PROC: 4A033R1 Measurement of Arterial Saturation, Peripheral, Percutaneous Approach (ICD-10-PCS; principal; 2020-12-10)
PROC: XW033E5 Introduction of Remdesivir Anti-infective into Peripheral Vein, Percutaneous Approach, New Technology Group 5 (ICD-10-PCS; 2020-12-11)
DX: U07.1 COVID-19 (principal); J12.82 Pneumonia due to coronavirus disease 2019; J96.01 Acute respiratory failure with hypoxia; J44.1 Chronic obstructive pulmonary disease with (acute) exacerbation; J44.0 Chronic obstructive pulmonary disease with (acute) lower respiratory infection; I10 Essential (primary) hypertension; G43.909 Migraine, unspecified, not intractable, without status migrainosus; E87.6 Hypokalemia; E66.9 Obesity, unspecified; Z68.34 Body mass index [BMI] 34.0-34.9, adult; Z87.891 Personal history of nicotine dependence
CPT/HCPCS: 36415; 71045; 71275; 80048; 80053; 82140; 82728; 82805; 82947; 83615; 84145; 85025; 85379; 85610; 85730; 86140; 87040; 94640; 96365; 96375; G0378; J0456; J0696; J1100; J1644; J1650; J2405; J7050; J8540; Q9967; U0003